=== PATIENT | male | born 1990 | race Caucasian/White ===

== ENCOUNTER 2017-10-07 23:27 | Emergency (ER) | payer OTHER ==
[2017-10-07] MEDS ORDERED: KETOROLAC TROMETHAMINE 60 MG/2 ML VIAL IM ONE (23:55)
[2017-10-07] MEDS ORDERED: METHOCARBAMOL 500 MG TABLET PO ONE (23:56)
--- NOTE | 2017-10-07 23:58 | PDOC ---
Attending Attestation - Resident Resident Name: Elijah Shetty - ED Attending Attestation I have performed the following: I have examined & evaluated the patient, The case was reviewed & discussed with the resident, I agree w/resident's findings & plan, Exceptions are as noted - HPI HPI: 10/07/17 23:56 Pt c/o low back pain after mopping floor earlier today. - Physicial Exam PE: 10/07/17 23:58 Physical Exam General Appearance: Yes: Appropriately Dressed. No: Apparent Distress, Intoxicated HEENT: positive: EOMI, RAVEN, Normal ENT Inspection, Normal Voice, TMs Normal, Pharynx Normal. negative: Pale Conjunctivae, Photophobia, Scleral Icterus (R), Scleral Icterus (L) Neck: positive: Trachea midline, Normal Thyroid, Supple. negative: Tender, Rigid, Carotid bruit, Stridor, Lymphadenopathy (R), Lymphadenopathy (L), Thyromegaly Respiratory/Chest: positive: Lungs Clear, Normal Breath Sounds. negative: Chest Tender, Respiratory Distress, Accessory Muscle Use, Labored Respiration, RES, Crackles, Rales, Rhonchi, Stridor, Wheezing, Dullness Cardiovascular: positive: Regular Rhythm, Regular Rate, S1, S2. negative: Edema , JVD, Murmur, Bradycardia, Tachycardia Vascular Pulses: Dorsalis-Pedis (R): 2+, Doralis-Pedis (L): 2+ Gastrointestinal/Abdominal: positive: Normal Bowel Sounds, Flat, Soft. negative : Tender, Organomegaly, Pulsatile Mass, Increased Bowel Sounds, Decreased BS, Distended, Guarding, Rebound, Hernia, Hepatomegaly, Spleenomegaly Lymphatic: negative: Adenopathy, Tenderness Musculoskeletal: positive: Normal Inspection. negative: CVA Tenderness, Decreased Range of Motion Extremity: positive: Normal Capillary Refill, Normal Inspection, Normal Range of Motion, Pelvis Stable. negative: Tender, Pedal Edema, Swelling, Erythema Integumentary: positive: Normal Color, Dry, Warm. negative: Cyanotic, Erythema , Jaundice, Rash Neurologic: positive: area coordinator II-XII NML intact, Fully Oriented, Alert, Normal Mood/ Affect, Motor Strength 5/5. negative: EOM Palsy, Facial Droop, Sensory Deficit - Medical Decision Making 10/08/17 01:05 Pt treated and released
--- NOTE | 2017-10-08 00:06 | PDOC ---
History of Present Illness - General Chief Complaint: Back Pain Stated Complaint: BACK PAIN Time Seen by Provider: 10/07/17 23:50 History Source: Patient Exam Limitations: No Limitations - History of Present Illness Initial Comments: 10/08/17 00:02 Patient is a 27M with no significant medical history here today complaining of sudden onset back pain while he was mopping an elevator at work. Patient states that the pain was in his left lower back and felt like a cramping in a muscle. He denies fevers, chills, IVDA, urinary incontinence, and focal weakness. Patient states that his back pain feels better with massaging of the muscle in his left lower back. Past History - Past Medical History Allergies/Adverse Reactions: Allergies Allergy/AdvReac Type Severity Reaction Status Date / Time No Known Allergies Allergy Verified 10/07/17 23:51 Home Medications: Ambulatory Orders Ibuprofen 800 mg PO TID #21 tablet 10/08/17 Methocarbamol 500 mg PO TID #21 tablet 10/08/17 COPD: No - Immunization History Immunization Up to Date: No - Suicide/Smoking/Psychosocial Hx Smoking History: Never smoked Have you smoked in the past 12 months: No Information on smoking cessation initiated: No Hx Alcohol Use: No Drug/Substance Use Hx: No Substance Use Type: None Review of Systems - Review of Systems Comments:: 10/08/17 00:04 GENERAL/CONSTITUTIONAL: No fever or chills. No weakness. HEAD, EYES, EARS, NOSE AND THROAT: No change in vision. No sore throat. CARDIOVASCULAR: No chest pain or shortness of breath RESPIRATORY: No cough, wheezing, or hemoptysis. GASTROINTESTINAL: No nausea, vomiting, diarrhea or constipation. GENITOURINARY: No dysuria, frequency, or change in urination. MUSCULOSKELETAL: No joint or muscle swelling or pain. Positive for lowe rback pain. SKIN: No rash NEUROLOGIC: No headache, vertigo, loss of consciousness, or change in strength/ sensation. HEMATOLOGIC/LYMPHATIC: No anemia, easy bleeding, or history of blood clots. ALLERGIC/IMMUNOLOGIC: No hives or skin allergy. *Physical Exam - Vital Signs Last Vital Signs Temp Pulse Resp BP Pulse Ox 97.7 F 68 18 125/77 97 10/07/17 23:42 10/07/17 23:42 10/07/17 23:42 10/07/17 23:42 10/07/17 23:42 - Physical Exam Comments: 10/08/17 00:04 GENERAL: Awake, alert, and fully oriented, sitting straight up in bed. HEAD: No signs of trauma, normocephalic, atraumatic EYES: PERRLA, EOMI, sclera anicteric, conjunctiva clear ENT: Auricles normal inspection, hearing grossly normal, nares patent, oropharynx clear without exudates. Moist mucosa NECK: Normal ROM, supple, no lymphadenopathy, JVD, or masses BACK: Nontender midline, nontender in lower back. Holding hip in flexed position. LUNGS: No distress, speaks full sentences, clear to auscultation bilaterally HEART: Regular rate and rhythm, normal S1 and S2, no murmurs, rubs or gallops, peripheral pulses normal and equal bilaterally. EXTREMITIES: Normal inspection, Normal range of motion, no edema. No clubbing or cyanosis. NEUROLOGICAL: Cranial nerves II through XII grossly intact. Normal speech, no focal sensorimotor deficits SKIN: Warm, Dry, normal turgor, no rashes or lesions noted. Medical Decision Making - Medical Decision Making 10/08/17 00:05 Patient is 27M here today with back pain. No red flags. Vital signs stable and normal. Exam consistent with minor sprain. Will give toradol and robaxin. Discharge home after reassessment. 10/08/17 00:53 Patient still having pain, but improved. More mobile. Will discharge home with return precautions. *DC/Admit/Observation/Transfer Diagnosis at time of Disposition: Back pain - Discharge Dispostion Disposition: HOME Condition at time of disposition: Good Decision to Admit order: No - Prescriptions Prescriptions: Ibuprofen 800 mg PO TID #21 tablet Methocarbamol 500 mg PO TID #21 tablet - Referrals - Patient Instructions Printed Discharge Instructions: DI for Low Back Pain Additional Instructions: You were seen today in the ED for back pain. Please take the medications prescribed to you for pain. Please return if you have any new, worsening or concerning symptoms. Please follow up with your primary care physician in the next week. If you do not have a primary care physician, the number for one has been provided for you. - Post Discharge Activity Forms/Work/School Notes: Back to Work
[2017-10-08 00:14] VITALS: BP 125/77; PULSE 68; TEMP 97.7; BMI 27.2
[2017-10-08] MEDS ORDERED: METHOCARBAMOL 500 MG TABLET ONE (00:41)
[2017-10-08] MEDS ORDERED: KETOROLAC TROMETHAMINE 60 MG/2 ML VIAL ONE (00:41)
== END 2017-10-08 02:06 | disposition home or self-care (01) ==
LOC: JER 23:27 → SUPCPDRO 23:27 → JER 10-08 02:06
PROC: 3E0233Z Introduction of Anti-inflammatory into Muscle, Percutaneous Approach (ICD-10-PCS; principal; 2017-10-07)
DX: M54.5 Low back pain (principal); X58.XXXA Exposure to other specified factors, initial encounter; Y93.H3 Activity, building and construction; Y92.89 Other specified places as the place of occurrence of the external cause; Y99.0 Civilian activity done for income or pay
CPT/HCPCS: 99281-25